=== PATIENT | male | born 1950 | race Caucasian/White ===

== ENCOUNTER 2019-04-29 15:34 | Emergency (ER) | payer OTHER ==
[~2019-04-29] VITALS: Ht 185.4 cm; Wt 104.3 kg
[2019-04-29 15:35] VITALS: BP 107/60
[2019-04-29] MEDS ORDERED: SINEMET 25-2501 EAC1 PO (17:16)
[2019-04-29] MEDS ORDERED: AMITRIPTYLINE H10 M3 PO (17:16)
[2019-04-29] MEDS ORDERED: DEPAKOTE 250MG250 M1 PO (17:17)
[2019-04-29] MEDS ORDERED: MYRBETRIQ50 MG PO (17:17)
== END 2019-04-30 04:36 | disposition home or self-care (01) ==
LOC: ER 15:34
DX: S01.01XA Laceration without foreign body of scalp, initial encounter (principal); W07.XXXA Fall from chair, initial encounter; Y93.89 Activity, other specified; Y92.89 Other specified places as the place of occurrence of the external cause; Y99.8 Other external cause status

== ENCOUNTER → 2019-07-04 | Outpatient (CLI) | payer OTHER ==
[~2019-07-04] MED LIST: AMITRIPTYLINE H10 M3 PO; DEPAKOTE 250MG250 M1 PO; MYRBETRIQ50 MG PO; SINEMET 25-2501 EAC1 PO
== END ==
LOC: RAD 08:18 → SPEECH 08:18 → RAD 10:46
DX: G23.1 Progressive supranuclear ophthalmoplegia [Steele-Richardson-Olszewski] (principal); R13.12 Dysphagia, oropharyngeal phase; R47.02 Dysphasia

== ENCOUNTER 2019-07-20 15:55 | Emergency (ER) | payer OTHER ==
[~2019-07-20] VITALS: Ht 177.8 cm; Wt 65.8 kg
[2019-07-20 15:57] VITALS: BP 130/83
== END 2019-07-20 18:00 | disposition home or self-care (01) ==
LOC: ER
DX: S00.81XA Abrasion of other part of head, initial encounter (principal); Z91.81 History of falling; W22.8XXA Striking against or struck by other objects, initial encounter; Y93.89 Activity, other specified; Y92.128 Other place in nursing home as the place of occurrence of the external cause; Y99.8 Other external cause status